=== PATIENT | male | born 1935 | race Caucasian/White ===

== ENCOUNTER 2019-01-07 23:12 | Emergency (ER) | payer MEDICARE, OTHER ==
[~2019-01-07] VITALS: Ht 167.6 cm; Wt 101.0 kg
--- NOTE | 2019-01-07 23:28 | NUR ---
Daughter Kimberley [phone]
[2019-01-07 23:49] LABS: BASOPHILS % (AUTO) 0.4 % (0-1); EOSINOPHILS # (AUTO) 0.2 X10'3 (0-0.9); EOSINOPHILS % (AUTO) 2.6 % (0-6); HEMATOCRIT 37.1 % (42.0-52.0); HEMOGLOBIN 12.4 g/dl (14.0-17.9); LYMPHOCYTES # (AUTO) 1.3 X10'3 (1.1-4.8); LYMPHOCYTES % (AUTO) 19.7 % (21-51); MEAN CORPUSCULAR HGB CONC 33.4 g/dL (33.0-36.5); MEAN CORPUSCULAR VOLUME 95.6 FL (78-98); MEAN PLATELET VOLUME 8.4 FL (7.4-10.4); MONOCYTES # (AUTO) 0.7 X10'3 (0-0.9); MONOCYTES % (AUTO) 9.9 % (2-12); NEUTROPHILS # (AUTO) 4.6 X10'3 (1.8-7.7); NEUTROPHILS % (AUTO) 67.4 % (42-75); PLATELET COUNT 229 X10'3 (140-440); RED BLOOD COUNT 3.88 X10'6 (4.70-6.10); RED CELL DISTRIBUTION WIDTH 14.6 % (11.5-14.5); WHITE BLOOD COUNT 6.8 X10'3 (4.5-11.0)
[2019-01-08] LABS: ALANINE AMINOTRANSFERASE 31 U/L (12-78); ALBUMIN 3.6 G/DL (3.4-5.0); ALBUMIN/GLOBULIN RATIO 1.1 (1.1-1.5); ALKALINE PHOSPHATASE 95 IU/L (46-116); ANION GAP 11 (8-16); ASPARTATE AMINO TRANSFERASE 22 U/L (10-37); BILIRUBIN,TOTAL 0.3 MG/DL (0.1-1.0); BLOOD UREA NITROGEN 19 MG/DL (7-18); BUN/CREATININE RATIO 20.4 (5.4-32.0); CHLORIDE 102 MMOL/L (99-107); CREATININE 0.93 MG/DL (0.60-1.10); GLUCOSE 92 MG/DL (70-104); POTASSIUM 4.1 MMOL/L (3.5-5.1); SODIUM 141 MMOL/L (135-145); TOTAL CARBON DIOXIDE 28.3 MMOL/L (24-32); TOTAL PROTEIN 6.9 G/DL (6.4-8.2); eGFR 78 ML/MIN
[2019-01-08 00:07] LABS: MAGNESIUM 2.1 MG/DL (1.5-2.4)
[2019-01-08] MEDS ORDERED: furosemide 20MG tablet PO ONE (00:35)
[2019-01-08] MEDS ORDERED: enoxaparin 100mg/ml syringe SUBCUT ONE (00:40)
[2019-01-08 01:01] VITALS: BP 137/76
--- NOTE | 2019-01-08 01:01 | NUR ---
dr alaniz at bedside talking with pt and and daughter. Pt with stable vs. To be given coumadin 12 mg and just given lovenox 100 mg and lasix 40 mg po.
[2019-01-08 01:03] LABS: D-DIMER 0.24 MG/L FEU (0-0.50)
[2019-01-08] MEDS ORDERED: DOXY100C43 PO (01:03)
[2019-01-08] MEDS ORDERED: warfarin 4mg tablet PO ONE (01:05)
--- NOTE | 2019-01-08 01:31 | NUR ---
LE: PT UPDATED A WHILE AGO THAT WE HAVE NO INTERVENTIONAL RADIOLOGY TECH TONIGHT AND HE WILL BE DISCHARGED AND RECOMMENDED TO HAVE A VASCULAR STUDY OF THE RIGHT LEG IN THE NEXT 24-48 HRS. PT REPROTS [facility].
== END 2019-01-08 01:38 | disposition home or self-care (01) ==
LOC: ER 23:12
DX: R60.0 Localized edema (principal); E78.00 Pure hypercholesterolemia, unspecified; I10 Essential (primary) hypertension; K21.9 Gastro-esophageal reflux disease without esophagitis; F41.9 Anxiety disorder, unspecified; Z88.0 Allergy status to penicillin; Z79.899 Other long term (current) drug therapy; Z79.01 Long term (current) use of anticoagulants; Z86.718 Personal history of other venous thrombosis and embolism
CPT/HCPCS: 36415; 80053; 83735; 83880; 84145; 85025; 85379; 85610; 96372; 99284; J1650

== ENCOUNTER 2019-01-08 20:21 | Emergency (ER) | payer MEDICARE, OTHER ==
[~2019-01-08] VITALS: Ht 167.6 cm; Wt 100.0 kg
[~2019-01-08 20:21] MED LIST: DOXY100C43 PO
[2019-01-08 20:25] VITALS: BP 151/69
[2019-01-08] MEDS ORDERED: DOXYCYCLINE 100MG CAPSULE PO STA (22:16)
== END 2019-01-08 22:38 | disposition home or self-care (01) ==
LOC: ER 20:21
DX: L03.115 Cellulitis of right lower limb (principal); E78.00 Pure hypercholesterolemia, unspecified; I10 Essential (primary) hypertension; K21.9 Gastro-esophageal reflux disease without esophagitis; F41.9 Anxiety disorder, unspecified; Z98.890 Other specified postprocedural states; Z88.8 Allergy status to other drugs, medicaments and biological substances; Z88.0 Allergy status to penicillin; Z79.2 Long term (current) use of antibiotics
CPT/HCPCS: 93971; 99284

== ENCOUNTER 2021-07-07 07:06 | Emergency (ER) | payer OTHER, MEDICARE ==
[~2021-07-07] VITALS: Ht 175.3 cm; Wt 84.1 kg
[2021-07-07 07:35] LABS: BASOPHILS % (AUTO) 0.3 % (0-1); EOSINOPHILS # (AUTO) 0.1 X10'3 (0-0.9); EOSINOPHILS % (AUTO) 1.6 % (0-6); HEMATOCRIT 33.6 % (42.0-52.0); LYMPHOCYTES # (AUTO) 0.7 X10'3 (1.1-4.8); LYMPHOCYTES % (AUTO) 10.5 % (21-51); MEAN CORPUSCULAR HEMOGLOBIN 30.6 PG (27.0-31.0); MEAN CORPUSCULAR HGB CONC 32.7 g/dL (33.0-36.5); MEAN CORPUSCULAR VOLUME 93.8 FL (78-98); MEAN PLATELET VOLUME 8.1 FL (7.4-10.4); MONOCYTES # (AUTO) 0.5 X10'3 (0-0.9); MONOCYTES % (AUTO) 8.5 % (2-12); NEUTROPHILS # (AUTO) 5.1 X10'3 (1.8-7.7); NEUTROPHILS % (AUTO) 79.1 % (42-75); PLATELET COUNT 271 X10'3 (140-440); RED BLOOD COUNT 3.58 X10'6 (4.70-6.10); RED CELL DISTRIBUTION WIDTH 15.8 % (11.5-14.5); WHITE BLOOD COUNT 6.4 X10'3 (4.5-11.0)
[2021-07-07 09:10] LABS: CLARITY,URINE CLEAR (Clear); COLOR,URINE YELLOW (Yellow); GLUCOSE, URINE NEGATIVE (Neg); KETONES,URINE NEGATIVE (Neg); LEUKOCYTE ESTERASE ,URINE NEGATIVE (Neg); NITRITES, URINE NEGATIVE (Neg); OCCULT BLOOD,URINE MODERATE (Neg); PH,URINE 7.5 (4.8-8.0); PROTEIN,URINE NEGATIVE (Neg); UROBILINOGEN,URINE 0.2 E.U/dL (0.2-1.0)
[2021-07-07 09:15] LABS: ALANINE AMINOTRANSFERASE 24 U/L (12-78); ALBUMIN 3.4 G/DL (3.4-5.0); ALBUMIN/GLOBULIN RATIO 1.2 (1.1-1.5); ALKALINE PHOSPHATASE 170 IU/L (46-116); ANION GAP 10 (8-16); ASPARTATE AMINO TRANSFERASE 23 U/L (10-37); BILIRUBIN,TOTAL 0.7 MG/DL (0.1-1.0); BLOOD UREA NITROGEN 16 MG/DL (7-18); BUN/CREATININE RATIO 21.6 (5.4-32.0); CALCIUM 8.9 MG/DL (8.5-10.1); CHLORIDE 101 MMOL/L (99-107); CREATININE 0.74 MG/DL (0.60-1.10); GLUCOSE 97 MG/DL (70-104); POTASSIUM 4.6 MMOL/L (3.5-5.1); SODIUM 138 MMOL/L (135-145); TOTAL PROTEIN 6.2 G/DL (6.4-8.2); eGFR > 90 ML/MIN
[2021-07-07 09:16] LABS: UA COLLECTION TYPE VOIDED
[2021-07-07 09:18] LABS: WBC,URINE NONE SEEN /HPF (0-4)
[2021-07-07 09:19] LABS: BACTERIA,URINE NONE SEEN /HPF (Neg); SQUAMOUS EPITHELIAL CELL,UR FEW /LPF (FEW)
[2021-07-07] MEDS ORDERED: acetaminophen 325mg tablet PO ONE (10:30)
[2021-07-07] MEDS ORDERED: acetaminophen 325mg tablet PO STA (10:34)
--- NOTE | 2021-07-07 10:36 | NUR ---
For this medication pass time frame, all medications were reviewed, dispensed, administered and documented per hospital policy by CHRISTOPHER Burger
[2021-07-07 11:00] VITALS: BP 138/64
--- NOTE | 2021-07-07 11:16 | NUR ---
Spoke with daughter Paula who will pick patient up.
== END 2021-07-07 12:01 | disposition home or self-care (01) ==
LOC: ER 07:07
DX: R42 Dizziness and giddiness (principal); R29.6 Repeated falls; M25.562 Pain in left knee; M25.561 Pain in right knee; E78.00 Pure hypercholesterolemia, unspecified; I10 Essential (primary) hypertension; K21.9 Gastro-esophageal reflux disease without esophagitis; G89.29 Other chronic pain; F41.9 Anxiety disorder, unspecified; Z98.890 Other specified postprocedural states; Z88.0 Allergy status to penicillin; Z88.8 Allergy status to other drugs, medicaments and biological substances
CPT/HCPCS: 36415; 71045; 73502; 80053; 81001; 85025; 85610; 93005; 99285

== ENCOUNTER 2021-11-17 15:53 | Emergency (ER) | payer OTHER, MEDICARE ==
[~2021-11-17] VITALS: Ht 167.6 cm; Wt 85.5 kg
[2021-11-17 16:51] VITALS: BP 164/92
[2021-11-17] MEDS ORDERED: LIDOcaine 1% W/epiNEPHrine 1:100,000 20ml vial IJ ONE (16:55)
[2021-11-17] MEDS ORDERED: bacitracin 15gm ointment TP ONE (16:55)
== END 2021-11-17 19:13 | disposition home or self-care (01) ==
LOC: ER 15:53
DX: S01.01XA Laceration without foreign body of scalp, initial encounter (principal); E78.00 Pure hypercholesterolemia, unspecified; K21.9 Gastro-esophageal reflux disease without esophagitis; G89.29 Other chronic pain; F41.9 Anxiety disorder, unspecified; Z88.0 Allergy status to penicillin; Z88.8 Allergy status to other drugs, medicaments and biological substances; W18.39XA Other fall on same level, initial encounter; Y93.89 Activity, other specified; Y92.89 Other specified places as the place of occurrence of the external cause; Y99.8 Other external cause status
CPT/HCPCS: 12001; 70450; 72125; 99284; J3490; J7030; A6449

== ENCOUNTER 2021-11-19 16:12 | Emergency (ER) | payer OTHER, MEDICARE ==
[~2021-11-19] VITALS: Ht 167.6 cm; Wt 84.5 kg
[2021-11-19 17:46] VITALS: BP 185/88
[2021-11-19] MEDS ORDERED: HYDROcodone/acetaminophen 5mg/325mg tablet PO ONE (18:10)
--- NOTE | 2021-11-19 18:20 | NUR ---
po med given
[2021-11-19] MEDS ORDERED: HYDR-3965 PO (18:58)
== END 2021-11-19 19:08 | disposition home or self-care (01) ==
LOC: ER 16:12
DX: M25.512 Pain in left shoulder (principal); I11.9 Hypertensive heart disease without heart failure; K21.9 Gastro-esophageal reflux disease without esophagitis; G89.29 Other chronic pain; F41.9 Anxiety disorder, unspecified; Z88.8 Allergy status to other drugs, medicaments and biological substances; Z88.0 Allergy status to penicillin; W19.XXXA Unspecified fall, initial encounter; Y93.89 Activity, other specified; Y92.89 Other specified places as the place of occurrence of the external cause; Y99.8 Other external cause status
CPT/HCPCS: 73030; 99283

== ENCOUNTER 2022-03-10 08:44 | Emergency (ER) | payer OTHER, MEDICARE ==
[~2022-03-10] VITALS: Ht 167.6 cm; Wt 79.1 kg
[~2022-03-10 08:44] MED LIST changes: +ATOR40TA PO; +BUPR150T8 PO; +BUSP10TA11 PO; +CHOL100046 PO; -DOXY100C43 PO; +FLO0.4C PO; +FLUO20CA39 PO; +HYDR-3965 PO; +LISI5TAB22 PO; +OMEP20CA16 PO; +POTA-192 PO; +WARF4TAB69 PO; +WARF6TAB49 PO
[2022-03-10 09:23] LABS: BASOPHILS % (AUTO) 0.7 % (0-1); EOSINOPHILS # (AUTO) 0.1 X10'3 (0-0.9); EOSINOPHILS % (AUTO) 1.7 % (0-6); HEMATOCRIT 32.3 % (42.0-52.0); HEMOGLOBIN 10.9 g/dl (14.0-17.9); LYMPHOCYTES % (AUTO) 20.8 % (21-51); MEAN CORPUSCULAR HEMOGLOBIN 30.9 PG (27.0-31.0); MEAN CORPUSCULAR HGB CONC 33.8 g/dL (33.0-36.5); MEAN CORPUSCULAR VOLUME 91.5 FL (78-98); MONOCYTES # (AUTO) 0.4 X10'3 (0-0.9); MONOCYTES % (AUTO) 8.8 % (2-12); NEUTROPHILS # (AUTO) 3.3 X10'3 (1.8-7.7); PLATELET COUNT 238 X10'3 (140-440); RED BLOOD COUNT 3.53 X10'6 (4.70-6.10); RED CELL DISTRIBUTION WIDTH 15.1 % (11.5-14.5); WHITE BLOOD COUNT 4.9 X10'3 (4.5-11.0)
[2022-03-10 09:31] LABS: APTT 34 SECONDS (22-32)
[2022-03-10 09:33] LABS: ALANINE AMINOTRANSFERASE 57 U/L (12-78); ALBUMIN 2.8 G/DL (3.4-5.0); ALBUMIN/GLOBULIN RATIO 0.9 (1.1-1.5); ALKALINE PHOSPHATASE 114 IU/L (46-116); ANION GAP 4 (8-16); ASPARTATE AMINO TRANSFERASE 36 U/L (10-37); BILIRUBIN,TOTAL 0.4 MG/DL (0.1-1.0); BLOOD UREA NITROGEN 13 MG/DL (7-18); BUN/CREATININE RATIO 17.1 (5.4-32.0); CALCIUM 8.6 MG/DL (8.5-10.1); CHLORIDE 105 MMOL/L (99-107); CREATININE 0.76 MG/DL (0.60-1.10); GLUCOSE 116 MG/DL (70-104); POTASSIUM 3.3 MMOL/L (3.5-5.1); SODIUM 141 MMOL/L (135-145); TOTAL CARBON DIOXIDE 32.5 MMOL/L (24-32); TOTAL PROTEIN 5.8 G/DL (6.4-8.2); eGFR > 90 ML/MIN
[2022-03-10 11:32] VITALS: BP 164/95
[2022-03-10 12:22] LABS: OCCULT BLOOD STOOL NEGATIVE (Neg)
== END 2022-03-10 11:59 | disposition home or self-care (01) ==
LOC: ER 08:44
DX: K92.1 Melena (principal); I10 Essential (primary) hypertension; E78.00 Pure hypercholesterolemia, unspecified; K21.9 Gastro-esophageal reflux disease without esophagitis; Z88.0 Allergy status to penicillin; Z91.041 Radiographic dye allergy status
CPT/HCPCS: 36415; 80053; 82272; 85025; 85610; 85730; 86885; 86900; 86901; 93005; 99284

== ENCOUNTER 2022-06-05 04:59 | Emergency (ER) | payer OTHER, MEDICARE ==
[~2022-06-05] VITALS: Ht 167.6 cm; Wt 80.9 kg
[~2022-06-05 04:59] MED LIST changes: +BUSP5TAB3 PO; -POTA-192 PO
[2022-06-05] MEDS ORDERED: LIDOcaine 2% 10ml TOPICAL JELLY (Urojet) MM ONE (05:05)
[2022-06-05 05:59] LABS: CLARITY,URINE CLOUDY (Clear); COLOR,URINE RED (Yellow); GLUCOSE, URINE NEGATIVE (Neg); KETONES,URINE NEGATIVE (Neg); LEUKOCYTE ESTERASE ,URINE NEGATIVE (Neg); NITRITES, URINE NEGATIVE (Neg); OCCULT BLOOD,URINE LARGE (Neg); PH,URINE 7.5 (4.8-8.0); PROTEIN,URINE 100 mg/dl (Neg); UROBILINOGEN,URINE 0.2 E.U/dL (0.2-1.0)
[2022-06-05 06:09] LABS: UA COLLECTION TYPE FOLEY CATH
[2022-06-05 06:10] LABS: BACTERIA,URINE NONE SEEN /HPF (Neg); MUCUS STRANDS NONE SEEN /LPF (Neg); RBC,URINE TNTC /HPF (0-2); SQUAMOUS EPITHELIAL CELL,UR NONE SEEN /LPF (FEW); WBC,URINE 0-4 /HPF (0-4)
[2022-06-05 06:38] VITALS: BP 107/8
--- NOTE | 2022-06-05 13:42 | NUR ---
CALLED [facility] TO GET UPDATED ETA FOR PT PICKUP, THEY STATED THEY WERE HAVING TROUBLE GETTING ANYONE TO COME WORK AT THAT THE EARLIEST POSSIBLE PICKUP WOULD BE 3 OR 4 PM BUT THAT EVEN THIS WAS NOT CERTAIN. THIS RN CALLED [facility] AND SPOKE WITH [facility] REGARDING ALTERNATIVES TO GET THE PT BACK TO FACILITY. IT WAS AGREED THAT SENDING PT BY AMBULANCE WOULD BE ACCEPTABLE. AMBULANCE COMPANY STATES THEY WILL NOT BE ABLE TO COME FOR APPROX 2 HOURS. PT RESTING QUIETLY IN NO APPARENT DISTRESS, VSS.
--- NOTE | 2022-06-05 16:05 | NUR ---
TC FROM [facility] INQUIRING TESTS/LABS THAT WERE DONE WHILE PATIENT WAS HERE. NURSE INFORMED THAT ONLY URINALYSIS WAS PERFORMED AND NEW BRICE CATHETER PLACED. ALL QUESTIONS ANSWERED FOR STAFF.
[2022-06-05] MEDS ORDERED: MONT-40 PO (23:58)
[2022-06-05] MEDS ORDERED: AMMO226L2 TOP (23:58)
[2022-06-05] MEDS ORDERED: FURO-150 PO (23:58)
[2022-06-05] MEDS ORDERED: ALB0.5UD IH (23:58)
== END 2022-06-05 15:08 | disposition home or self-care (01) ==
LOC: ER 05:00
DX: R33.9 Retention of urine, unspecified (principal); E78.00 Pure hypercholesterolemia, unspecified; I10 Essential (primary) hypertension; K21.9 Gastro-esophageal reflux disease without esophagitis; G89.29 Other chronic pain; F41.9 Anxiety disorder, unspecified; F32.A Depression, unspecified; Z86.711 Personal history of pulmonary embolism; Z86.2 Personal history of diseases of the blood and blood-forming organs and certain disorders involving the immune mechanism; Z86.718 Personal history of other venous thrombosis and embolism; Z91.09 Other allergy status, other than to drugs and biological substances; Z98.890 Other specified postprocedural states; Z88.0 Allergy status to penicillin; Z88.8 Allergy status to other drugs, medicaments and biological substances; Z79.899 Other long term (current) drug therapy
CPT/HCPCS: 51702; 81001; 99284; A4340

== ENCOUNTER 2022-06-16 13:34 | Emergency (ER) | payer OTHER, MEDICARE ==
[~2022-06-16] VITALS: Ht 170.2 cm; Wt 77.7 kg
[~2022-06-16 13:34] MED LIST changes: +ALB0.5UD IH; +AMMO226L2 TOP; +FURO-150 PO; -HYDR-3965 PO; +MONT-40 PO
[2022-06-16] MEDS ORDERED: normal saline 1000ML IV soln IVB ONE (15:00)
[2022-06-16 15:13] LABS: BASOPHILS # (AUTO) 0.1 X10'3 (0-0.2); BASOPHILS % (AUTO) 0.6 % (0-1); EOSINOPHILS # (AUTO) 0.2 X10'3 (0-0.9); EOSINOPHILS % (AUTO) 2.3 % (0-6); HEMATOCRIT 31.2 % (42.0-52.0); HEMOGLOBIN 9.9 g/dl (14.0-17.9); LYMPHOCYTES # (AUTO) 0.8 X10'3 (1.1-4.8); LYMPHOCYTES % (AUTO) 8.2 % (21-51); MEAN CORPUSCULAR HEMOGLOBIN 28.7 PG (27.0-31.0); MEAN CORPUSCULAR HGB CONC 31.9 g/dL (33.0-36.5); MEAN CORPUSCULAR VOLUME 90.1 FL (78-98); MEAN PLATELET VOLUME 7.4 FL (7.4-10.4); MONOCYTES % (AUTO) 10.2 % (2-12); NEUTROPHILS # (AUTO) 7.9 X10'3 (1.8-7.7); NEUTROPHILS % (AUTO) 78.7 % (42-75); PLATELET COUNT 380 X10'3 (140-440); RED BLOOD COUNT 3.47 X10'6 (4.70-6.10); RED CELL DISTRIBUTION WIDTH 16.5 % (11.5-14.5)
[2022-06-16 15:29] LABS: ALANINE AMINOTRANSFERASE 30 U/L (12-78); ALBUMIN 2.8 G/DL (3.4-5.0); ALBUMIN/GLOBULIN RATIO 0.7 (1.1-1.5); ALKALINE PHOSPHATASE 103 IU/L (46-116); ANION GAP 4 (8-16); ASPARTATE AMINO TRANSFERASE 27 U/L (10-37); BILIRUBIN,TOTAL 0.5 MG/DL (0.1-1.0); BLOOD UREA NITROGEN 14 MG/DL (7-18); BUN/CREATININE RATIO 15.7 (5.4-32.0); CALCIUM 8.7 MG/DL (8.5-10.1); CHLORIDE 100 MMOL/L (99-107); CREATININE 0.89 MG/DL (0.60-1.10); GLUCOSE 111 MG/DL (70-104); POTASSIUM 4.2 MMOL/L (3.5-5.1); SODIUM 136 MMOL/L (135-145); TOTAL PROTEIN 6.6 G/DL (6.4-8.2); eGFR 81 ML/MIN
[2022-06-16 15:54] LABS: UA COLLECTION TYPE FOLEY CATH
[2022-06-16 15:55] LABS: CLARITY,URINE Cloudy (Clear); COLOR,URINE RED (Yellow)
--- NOTE | 2022-06-16 15:59 | NUR ---
See catheter manually irrigated several times. Multiple small blood clots noted during the procedure.After manual irrigation, see catheterstarted draining air hose coupler red urine compare to dark red urine color before the irrigation.
[2022-06-16 16:05] VITALS: BP 115/66
--- NOTE | 2022-06-16 16:06 | NUR ---
Pt stated he feels much better after the manual irrigation of his see catheter.
[2022-06-16 16:11] LABS: BACTERIA,URINE 2+ /HPF (Neg); RBC,URINE TNTC /HPF (0-2)
[2022-06-16 16:13] LABS: TRIPLE PHOSPHATE CRYST 1+ /HPF (NEGATIVE)
[2022-06-16 16:16] LABS: SQUAMOUS EPITHELIAL CELL,UR FEW /LPF (FEW)
== END 2022-06-16 20:12 | disposition home or self-care (01) ==
LOC: ER 13:34
DX: R31.9 Hematuria, unspecified (principal); T83.091A Other mechanical complication of indwelling urethral catheter, initial encounter; E78.00 Pure hypercholesterolemia, unspecified; I10 Essential (primary) hypertension; K21.9 Gastro-esophageal reflux disease without esophagitis; D64.9 Anemia, unspecified; F03.90 Unspecified dementia, unspecified severity, without behavioral disturbance, psychotic disturbance, mood disturbance, and anxiety; F32.A Depression, unspecified; F41.9 Anxiety disorder, unspecified; Z88.0 Allergy status to penicillin; Z91.041 Radiographic dye allergy status
CPT/HCPCS: 36415; 80053; 81001; 85025; 87088; 99284; J7030

== ENCOUNTER 2022-06-17 13:14 | Day surgery (SDC) | payer OTHER ==
[~2022-06-17] VITALS: Ht 167.6 cm; Wt 77.0 kg
[2022-06-17] MEDS ORDERED: normal saline 1000ml 1,000 ML IV PRN (13:50)
--- NOTE | 2022-06-17 13:50 | NUR ---
Patient does not know why he is at the hospital and what is being done. Spoke with IR RN to make her aware that patient isnt able to consent to procedure. She will be calling patient's daughter. Called [facility] to speak with RN regarding patient's medications.
--- NOTE | 2022-06-17 14:00 | NUR ---
IR called. Procedure cancelled.
--- NOTE | 2022-06-17 14:20 | NUR ---
Yury from [facility] here to take patient back to [facility]. All belongings with patient on d/c.
== END 2022-06-17 14:20 ==
LOC: SSTAY O 13:14
PROVIDERS: ATTEND Radiology Diagnostic Radiology
DX: R31.9 Hematuria, unspecified (principal); Z53.8 Procedure and treatment not carried out for other reasons; Z88.5 Allergy status to narcotic agent; Z88.8 Allergy status to other drugs, medicaments and biological substances; Z88.0 Allergy status to penicillin
CPT/HCPCS: J7030

== ENCOUNTER 2022-06-19 12:43 | Emergency (ER) | payer OTHER ==
[~2022-06-19] VITALS: Ht 167.6 cm; Wt 80.5 kg
[2022-06-19] MEDS ORDERED: morphine 2 MG/ML inj. syringe IV ONE ×2 (13:15→13:30)
[2022-06-19] MEDS ORDERED: ondansetron/PF 4mg/2ml inj IV ONE (13:15)
[2022-06-19] MEDS ORDERED: oxyCODONE/APAP 5-325mg tablet PO ONE (13:15)
[2022-06-19] MEDS ORDERED: OXYC-134 PO ×2 (13:55→13:56)
[2022-06-19 14:09] LABS: BASOPHILS % (AUTO) 0.5 % (0-1); EOSINOPHILS # (AUTO) 0.1 X10'3 (0-0.9); EOSINOPHILS % (AUTO) 1.1 % (0-6); HEMATOCRIT 31.5 % (42.0-52.0); LYMPHOCYTES # (AUTO) 0.9 X10'3 (1.1-4.8); LYMPHOCYTES % (AUTO) 9.4 % (21-51); MEAN CORPUSCULAR HEMOGLOBIN 28.4 PG (27.0-31.0); MEAN CORPUSCULAR HGB CONC 31.6 g/dL (33.0-36.5); MEAN CORPUSCULAR VOLUME 89.6 FL (78-98); MEAN PLATELET VOLUME 7.3 FL (7.4-10.4); MONOCYTES # (AUTO) 0.8 X10'3 (0-0.9); MONOCYTES % (AUTO) 8.6 % (2-12); NEUTROPHILS # (AUTO) 7.9 X10'3 (1.8-7.7); NEUTROPHILS % (AUTO) 80.4 % (42-75); PLATELET COUNT 411 X10'3 (140-440); RED BLOOD COUNT 3.51 X10'6 (4.70-6.10); RED CELL DISTRIBUTION WIDTH 16.2 % (11.5-14.5); WHITE BLOOD COUNT 9.9 X10'3 (4.5-11.0)
[2022-06-19 14:15] LABS: CLARITY,URINE BLOODY (Clear); COLOR,URINE RED (Yellow); UA COLLECTION TYPE CLN CATCH MIDSTREAM
[2022-06-19 14:23] LABS: BACTERIA,URINE 2+ /HPF (Neg); RBC,URINE TNTC /HPF (0-2)
[2022-06-19 14:24] LABS: ALANINE AMINOTRANSFERASE 26 U/L (12-78); ALBUMIN 2.9 G/DL (3.4-5.0); ALBUMIN/GLOBULIN RATIO 0.8 (1.1-1.5); ALKALINE PHOSPHATASE 108 IU/L (46-116); ANION GAP 9 (8-16); ASPARTATE AMINO TRANSFERASE 21 U/L (10-37); BILIRUBIN,TOTAL 0.6 MG/DL (0.1-1.0); BLOOD UREA NITROGEN 15 MG/DL (7-18); CALCIUM 8.9 MG/DL (8.5-10.1); CHLORIDE 104 MMOL/L (99-107); CREATININE 0.88 MG/DL (0.60-1.10); GLUCOSE 105 MG/DL (70-104); POTASSIUM 3.8 MMOL/L (3.5-5.1); SODIUM 140 MMOL/L (135-145); TOTAL CARBON DIOXIDE 27.1 MMOL/L (24-32); TOTAL PROTEIN 6.5 G/DL (6.4-8.2); eGFR 82 ML/MIN
[2022-06-19] MEDS ORDERED: LIDOcaine 2% 10ml TOPICAL JELLY (Urojet) MM ONE (14:35)
[2022-06-19 14:40] LABS: TRIPLE PHOSPHATE CRYST 1+ /HPF (NEGATIVE)
[2022-06-19 14:41] LABS: SQUAMOUS EPITHELIAL CELL,UR NONE SEEN /LPF (FEW); WBC,URINE 0-4 /HPF (0-4)
[2022-06-19] MEDS ORDERED: HYDR-3965 PO (15:15)
[2022-06-19] MEDS ORDERED: CefTRIAXone/D5W-Rocephin 1gm 50 ML IV ONE (15:25)
[2022-06-19] MEDS ORDERED: CEPH250T PO (15:27)
[2022-06-19 16:42] VITALS: BP 118/86
== END 2022-06-19 16:49 | disposition home or self-care (01) ==
LOC: ER 12:44
DX: N48.89 Other specified disorders of penis (principal); N39.0 Urinary tract infection, site not specified; E78.00 Pure hypercholesterolemia, unspecified; I10 Essential (primary) hypertension; K21.9 Gastro-esophageal reflux disease without esophagitis; G89.29 Other chronic pain; F41.9 Anxiety disorder, unspecified; F32.9 Major depressive disorder, single episode, unspecified; Z86.718 Personal history of other venous thrombosis and embolism; Z98.890 Other specified postprocedural states; Z88.0 Allergy status to penicillin; Z88.5 Allergy status to narcotic agent; Z88.6 Allergy status to analgesic agent; Z79.01 Long term (current) use of anticoagulants; Z79.899 Other long term (current) drug therapy
CPT/HCPCS: 36415; 80053; 81001; 84145; 85025; 96365; 96375; 96376; 99284; J0696; J2270; J2405

== ENCOUNTER 2022-12-07 01:19 | Inpatient (IN) | payer OTHER, MEDICARE ==
[~2022-12-07] VITALS: Ht 182.9 cm; Wt 90.9 kg
[~2022-12-07 01:19] MED LIST changes: +OXYC-134 PO
[2022-12-07] MEDS ORDERED: levetiracetam inj 1,000 MG in normal saline 100ml IV soln 90 ML IV ONE (01:40)
[2022-12-07] MEDS ORDERED: normal saline 1000ml 1,000 ML IV ONE ×2 (01:40→03:35)
[2022-12-07] MEDS ORDERED: levetiracetam inj 1,000 MG in normal saline 100ml IV soln 100 ML IV ONE (01:45)
[2022-12-07] MEDS ORDERED: acetaminophen 1,000mg/100ml IV 100 ML IV STA (01:53)
[2022-12-07 02:06] LABS: BASOPHILS # (AUTO) 0.1 X10'3 (0-0.2); BASOPHILS % (AUTO) 0.2 % (0-1); EOSINOPHILS % (AUTO) 0 % (0-6); HEMATOCRIT 31.9 % (42.0-52.0); HEMOGLOBIN 10.4 g/dl (14.0-17.9); LYMPHOCYTES # (AUTO) 0.1 X10'3 (1.1-4.8); LYMPHOCYTES % (AUTO) 0.2 % (21-51); MEAN CORPUSCULAR HEMOGLOBIN 29.2 PG (27.0-31.0); MEAN CORPUSCULAR HGB CONC 32.5 g/dL (33.0-36.5); MEAN CORPUSCULAR VOLUME 89.8 FL (78-98); MEAN PLATELET VOLUME 7.6 FL (7.4-10.4); MONOCYTES # (AUTO) 0.1 X10'3 (0-0.9); MONOCYTES % (AUTO) 0.2 % (2-12); NEUTROPHILS # (AUTO) 31.9 X10'3 (1.8-7.7); NEUTROPHILS % (AUTO) 99.4 % (42-75); PLATELET COUNT 336 X10'3 (140-440); RED BLOOD COUNT 3.55 X10'6 (4.70-6.10); RED CELL DISTRIBUTION WIDTH 15.6 % (11.5-14.5)
[2022-12-07 02:18] LABS: ALANINE AMINOTRANSFERASE 37 U/L (12-78); ALBUMIN 2.1 G/DL (3.4-5.0); ALBUMIN/GLOBULIN RATIO 0.5 (1.1-1.5); ALKALINE PHOSPHATASE 96 IU/L (46-116); ANION GAP 9 (8-16); ASPARTATE AMINO TRANSFERASE 40 U/L (10-37); BLOOD UREA NITROGEN 23 MG/DL (7-18); BUN/CREATININE RATIO 12.5 (10.0-20.0); CALCIUM 8.4 MG/DL (8.5-10.1); CHLORIDE 99 MMOL/L (99-107); CREATININE 1.84 MG/DL (0.60-1.10); GLUCOSE 81 MG/DL (70-104); POTASSIUM 4.1 MMOL/L (3.5-5.1); SODIUM 135 MMOL/L (135-145); TOTAL PROTEIN 6.4 G/DL (6.4-8.2); eGFR 35 ML/MIN
[2022-12-07 02:24] LABS: WHITE BLOOD COUNT 32.1 X10'3 (4.5-11.0)
[2022-12-07] MEDS ORDERED: normal saline 1000ML IV soln IVB ONE (02:25)
[2022-12-07] MEDS ORDERED: vancomycin/NS 1 GM ADD-VANTAGE 250 ML IV ONE (02:25)
[2022-12-07] MEDS ORDERED: CefTRIAXone 2gm/D5W 50ml BAG 50 ML IV ONE (02:30)
[2022-12-07 03:38] LABS: TOTAL CELLS COUNTED 100
[2022-12-07 03:39] LABS: ANISOCYTOSIS 1+; PLATELET ESTIMATE NORMAL
[2022-12-07 03:40] LABS: BURR CELLS FEW; ELLIPTOCYTES FEW; POLYCHROMASIA FEW
[2022-12-07 03:41] LABS: TOXIC GRANULATION 1+
[2022-12-07 04:38] LABS: UA COLLECTION TYPE FOLEY CATH
[2022-12-07 04:39] LABS: COLOR,URINE YELLOW (Yellow)
[2022-12-07 04:40] LABS: CLARITY,URINE TURBID (Clear); GLUCOSE, URINE NEGATIVE (Neg); KETONES,URINE NEGATIVE (Neg); NITRITES, URINE NEGATIVE (Neg); OCCULT BLOOD,URINE LARGE (Neg); PH,URINE 7.5 (4.8-8.0); PROTEIN,URINE 30 mg/dl (Neg)
[2022-12-07 04:41] LABS: LEUKOCYTE ESTERASE ,URINE LARGE (Neg)
[2022-12-07 04:42] LABS: WBC,URINE TNTC /HPF (0-4)
[2022-12-07 04:43] LABS: BACTERIA,URINE 3+ /HPF (Neg); SQUAMOUS EPITHELIAL CELL,UR FEW /LPF (FEW); TRANSITIONAL EPI CELLS,URINE FEW /HPF; WBC CLUMPS,URINE MANY /HPF (NEGATIVE)
[2022-12-07] MEDS ORDERED: LORazepam 2 mg/ml vial IV PRN (05:15)
[2022-12-07] MEDS ORDERED: acetaminophen 325mg tablet PO PRN (05:15)
--- NOTE | 2022-12-07 06:43 | NUR ---
Per Dr. Rincon, patient should be in DNR comfort care status and that he would fix the order for code status. At the moment, the order said do not resuscitate with order to initiate comfort care
[2022-12-07] MEDS: morphine 10mg/ml inj. IV PRN ×2 (07:41→09:41)
--- NOTE | 2022-12-07 07:43 | NUR ---
Patient was uncomfortable, a little restless, HR was elevated 95-104. Patient unable to verbalized where the pain exactly or described the pain. Patient was altered with incomprehensible speech Addendum: 12/07/22 at 0745 by PAMELA Moprhine 5 mg IV given for pain/comfort
[2022-12-07] MEDS: docusate sod 100mg capsule PO SCH ×2 (08:00→20:00)
[2022-12-07] MEDS: sennosides/docusate sodium tablet PO SCH ×2 (08:00→20:00)
--- NOTE | 2022-12-07 09:23 | NUR ---
Patient urinated the bed. Emmie care done and changed the linens
--- NOTE | 2022-12-07 09:27 | NUR ---
Per Dr. Kamara, we should feed the patient. I told him patient was disoriented and won't follow my command. I put patient's head elevated, tried to give him water with a straw, patient won't follow the instruction. I tried to give a trial of oatmeal, patient won't take the food or close his mouth. Patient started getting agitated, refusing to eat or drink.
--- NOTE | 2022-12-07 09:42 | NUR ---
Patient yelled at me and said "Aaww!". when being touch. Patient also holding this head. Morphine 5 mg IV given for pain
--- NOTE | 2022-12-07 12:20 | NUR ---
Patient comfortably sleeping at this time, breathing unlabored. No signs of pain or agitation at this time
[2022-12-07] MEDS: levetiracetam inj 500 MG in normal saline 100ml IV soln 100 ML IV SCH (13:21)
--- NOTE | 2022-12-07 18:21 | NUR ---
Attempted to give report to the night nurse. I was told that the nurse was still in the middle of report at this time
--- NOTE | 2022-12-07 18:42 | NUR ---
REPORT RECEIVED FROM LEGAL DOCUMENT SPECIALIST AND WILL CONTINUE TO MONITOR PATIENT WHEN HE ARRIVES.
[2022-12-07 19:00] VITALS: BP 143/69; PULSE 71; RESP 17; TEMP 97.3; O2SAT 97
[2022-12-07 20:00] VITALS: RESP 17; O2SAT 97
[2022-12-07] MEDS: CefTRIAXone/D5W-Rocephin 1gm 50 ML IV SCH (21:25)
[2022-12-07] MEDS: morphine 10mg/0.5ml (conc. morphine) oral syringe PO PRN (21:26)
[2022-12-08] MEDS: levetiracetam inj 500 MG in normal saline 100ml IV soln 100 ML IV SCH ×2 (00:33→12:30)
--- NOTE | 2022-12-08 06:22 | NUR ---
Problems reprioritized. Patient report given, questions answered & plan of care reviewed with DEVORAH TOBIAS.
[2022-12-08 07:00] VITALS: BP 140/80; PULSE 83; RESP 14; TEMP 97.8; O2SAT 97
[2022-12-08 08:00] VITALS: RESP 17; O2SAT 97
[2022-12-08] MEDS: sennosides/docusate sodium tablet PO SCH ×2 (08:00→19:13)
[2022-12-08] MEDS: docusate sod 100mg capsule PO SCH ×2 (08:00→19:13)
[2022-12-08] MEDS: CefTRIAXone/D5W-Rocephin 1gm 50 ML IV SCH (08:00)
--- NOTE | 2022-12-08 09:41 | NUR ---
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 Pt now DNR w/ comfort care w/ current reported wt appropriate for age and stable from prior May 2022 reported wt in EMR. No BM yet though just admit yesterday on regular diet. Will continue to follow per comfort measures. Rec: 1. bowel care per rx Addendum: 12/08/22 at [address] Amended: Links added.
--- NOTE | 2022-12-08 15:25 | NUR ---
PRESSURE ULCER EDUCATION: DEFINITION: A pressure ulcer is an area of skin that breaks down when you stay in one position too long. The constant pressure against the skin reduces the blood flow to that area and the affected tissue dies. CAUSES: "Being bedridden or in a wheelchair "Fragile skin "Having a chronic condition, such as diabetes or vascular disease "Inability to move certain parts of your body without assistance "Older age "Incontinence of urine or stool SYMPTOMS: "A reddened area that DOES NOT turn white when pressed on - this can be the beginning of a pressure ulcer "A blister, deep sore or a crater - these can be advanced pressure ulcers FIRST AID: "Relieve the pressure on this area "Keep the area clean and dry "Call your primary doctor if you see any of the above symptoms "DO NOT massage the area "DO NOT use a donut shaped or ring shaped pillow- these actually interfere with the blood flow and cause complications PREVENTION: "Check for pressure ulcers everyday "Change position at least every two hours to relieve pressure "Use items that help relieve pressure- pillows, sheepskin, foam padding, and powders. "Keep skin clean and dry "Eat healthy well balanced meals "Exercise daily IF YOU SEE ANY OF THESE SYMPTOMS WHILE IN THE HOSPITAL - TELL YOUR NURSE IMMEDIATELY. IF YOU SEE ANY OF THESE SYMPTOMS WHILE AT HOME OR HAVE ANY QUESTIONS OR CONCERNS ABOUT PRESSURE ULCERS - CALL YOUR PRIMARY DOCTOR IMMEDIATELY. Addendum: 12/08/22 at 1525 by Opal Payne LVN Amended: Links added.
[2022-12-08 18:00] VITALS: BP 116/57; PULSE 75; RESP 17; TEMP 97.2; O2SAT 98
--- NOTE | 2022-12-08 18:10 | NUR ---
Patient in room PCU 3011. I have received report from Tyrell TOBIAS and had the opportunity to ask questions and assume patient care.
[2022-12-08] MEDS: nystatin 15 GM powder TP SCH (19:14)
[2022-12-08 20:00] VITALS: RESP 17; O2SAT 98
--- NOTE | 2022-12-08 20:30 | NUR ---
CONTINUITY EDITOR documentation: I have reviewed and agree with all interventions, assessments performed and documented by Sola Awad LVN .
[2022-12-08] MEDS: morphine 10mg/0.5ml (conc. morphine) oral syringe PO PRN (23:58)
[2022-12-09] MEDS: levetiracetam inj 500 MG in normal saline 100ml IV soln 100 ML IV SCH ×2 (03:01→12:30)
--- NOTE | 2022-12-09 06:17 | NUR ---
Problems reprioritized. Patient report given, questions answered & plan of care reviewed with jaelyn rocha.
[2022-12-09 07:00] VITALS: BP 134/65; PULSE 64; RESP 13; TEMP 97.6; O2SAT 100
[2022-12-09 08:00] VITALS: RESP 17; O2SAT 98
[2022-12-09] MEDS: nystatin 15 GM powder TP SCH ×2 (08:00→20:01)
[2022-12-09] MEDS: docusate sod 100mg capsule PO SCH ×2 (09:47→20:01)
[2022-12-09] MEDS: CefTRIAXone/D5W-Rocephin 1gm 50 ML IV SCH (09:48)
[2022-12-09] MEDS: sennosides/docusate sodium tablet PO SCH ×2 (09:49→20:01)
[2022-12-09] MEDS: linezolid 600mg tablet PO SCH ×2 (17:13→20:00)
[2022-12-09] MEDS: morphine 10mg/0.5ml (conc. morphine) oral syringe PO PRN (18:47)
[2022-12-09 19:00] VITALS: BP 145/71; PULSE 81; RESP 24; TEMP 97.6; O2SAT 98
[2022-12-09 20:00] VITALS: RESP 24; O2SAT 98
[2022-12-10] MEDS: levetiracetam inj 500 MG in normal saline 100ml IV soln 100 ML IV SCH ×2 (00:41→12:30)
--- NOTE | 2022-12-10 06:16 | NUR ---
Problems reprioritized. Patient report given, questions answered & plan of care reviewed with Tyrell TOBIAS.
--- NOTE | 2022-12-10 06:53 | NUR ---
This RN has reviewed and agrees w/the TILE AND MOTTLE SUPERVISOR's physical assessment of this pt.
[2022-12-10 07:00] VITALS: BP 148/55; PULSE 66; RESP 24; TEMP 97.4; O2SAT 94
[2022-12-10 07:10] LABS: BASOPHILS % (AUTO) 0.4 % (0-1); EOSINOPHILS # (AUTO) 0.2 X10'3 (0-0.9); EOSINOPHILS % (AUTO) 1.7 % (0-6); HEMATOCRIT 28.8 % (42.0-52.0); HEMOGLOBIN 9.3 g/dl (14.0-17.9); LYMPHOCYTES # (AUTO) 0.8 X10'3 (1.1-4.8); LYMPHOCYTES % (AUTO) 6.3 % (21-51); MEAN CORPUSCULAR HEMOGLOBIN 29.5 PG (27.0-31.0); MEAN CORPUSCULAR HGB CONC 32.3 g/dL (33.0-36.5); MEAN CORPUSCULAR VOLUME 91.4 FL (78-98); MEAN PLATELET VOLUME 8.1 FL (7.4-10.4); MONOCYTES # (AUTO) 0.6 X10'3 (0-0.9); MONOCYTES % (AUTO) 4.7 % (2-12); NEUTROPHILS # (AUTO) 10.7 X10'3 (1.8-7.7); NEUTROPHILS % (AUTO) 86.9 % (42-75); PLATELET COUNT 229 X10'3 (140-440); RED BLOOD COUNT 3.15 X10'6 (4.70-6.10); RED CELL DISTRIBUTION WIDTH 16.4 % (11.5-14.5); WHITE BLOOD COUNT 12.3 X10'3 (4.5-11.0)
[2022-12-10 07:40] LABS: ALANINE AMINOTRANSFERASE 33 U/L (12-78); ALBUMIN 1.8 G/DL (3.4-5.0); ALBUMIN/GLOBULIN RATIO 0.5 (1.1-1.5); ALKALINE PHOSPHATASE 95 IU/L (46-116); ANION GAP 8 (8-16); ASPARTATE AMINO TRANSFERASE 23 U/L (10-37); BILIRUBIN,TOTAL 0.3 MG/DL (0.1-1.0); BLOOD UREA NITROGEN 24 MG/DL (7-18); BUN/CREATININE RATIO 19.7 (10.0-20.0); CALCIUM 8.4 MG/DL (8.5-10.1); CHLORIDE 108 MMOL/L (99-107); CREATININE 1.22 MG/DL (0.60-1.10); GLUCOSE 103 MG/DL (70-104); SODIUM 143 MMOL/L (135-145); TOTAL CARBON DIOXIDE 26.6 MMOL/L (24-32); TOTAL PROTEIN 5.6 G/DL (6.4-8.2); eGFR 56 ML/MIN
[2022-12-10 08:00] VITALS: RESP 24; O2SAT 98
[2022-12-10] MEDS: docusate sod 100mg capsule PO SCH (08:00)
[2022-12-10] MEDS: linezolid 600mg tablet PO SCH (08:00)
[2022-12-10] MEDS: nystatin 15 GM powder TP SCH (08:00)
[2022-12-10] MEDS: sennosides/docusate sodium tablet PO SCH (08:00)
[2022-12-10] MEDS ORDERED: magnesium hydroxide 30ml (MOM) UD suspension PO ONE (09:00)
--- NOTE | 2022-12-10 14:48 | NUR ---
Zyvox Consult: Pt started on zyvox remains DNR w/ comfort care per EMR. Diet ed not appropriate at this time. Will continue to follow per comfort measures. Addendum: 12/10/22 at [address] Amended: Links added.
== END 2022-12-10 16:59 | DRG 871 ==
LOC: ER 01:19 → ED HOLD 16:21 → PCU 3S 19:00
PROVIDERS: ADMIT Internal Medicine; ATTEND Internal Medicine
DX: A41.02 Sepsis due to Methicillin resistant Staphylococcus aureus (principal); J96.01 Acute respiratory failure with hypoxia; N17.9 Acute kidney failure, unspecified; N13.6 Pyonephrosis; Z66 Do not resuscitate; Z51.5 Encounter for palliative care; Z20.822 Contact with and (suspected) exposure to COVID-19; G89.4 Chronic pain syndrome; N18.9 Chronic kidney disease, unspecified; E78.00 Pure hypercholesterolemia, unspecified; F32.A Depression, unspecified; D64.9 Anemia, unspecified; B95.62 Methicillin resistant Staphylococcus aureus infection as the cause of diseases classified elsewhere; F41.9 Anxiety disorder, unspecified; R40.4 Transient alteration of awareness; K21.9 Gastro-esophageal reflux disease without esophagitis; K76.9 Liver disease, unspecified; F03.90 Unspecified dementia, unspecified severity, without behavioral disturbance, psychotic disturbance, mood disturbance, and anxiety; G40.909 Epilepsy, unspecified, not intractable, without status epilepticus; I12.9 Hypertensive chronic kidney disease with stage 1 through stage 4 chronic kidney disease, or unspecified chronic kidney disease; R32 Unspecified urinary incontinence; Z86.711 Personal history of pulmonary embolism; Z88.5 Allergy status to narcotic agent; Z88.0 Allergy status to penicillin; Z91.041 Radiographic dye allergy status; Z86.718 Personal history of other venous thrombosis and embolism; Z79.899 Other long term (current) drug therapy
CPT/HCPCS: 36415; 70450; 71045; 71250; 74176; 80053; 81001; 83605; 84145; 85007; 85025; 87040; 87077; 87081; 87088; 87186; 87502; 87503; 87811; 93005; 99285; A4349; A6258; A6455; C1758; G0378; J0131; J0696; J1953; J2274; J3370; J3490; J7030; J7040